=== PATIENT | female | born 1975 | race Caucasian/White ===

== ENCOUNTER 2017-11-28 11:22 | Emergency (ER) | payer MEDICAID ==
[~2017-11-28] VITALS: Ht 162.6 cm; Wt 94.3 kg
[2017-11-28 11:40] VITALS: BP 134/99; Ht 162.6 cm; Wt 94.3 kg
== END 2017-11-28 14:20 | disposition left against medical advice (07) ==
LOC: ED 11:22
DX: Z53.21 Procedure and treatment not carried out due to patient leaving prior to being seen by health care provider (principal)